=== PATIENT | female | born 1970 | race Caucasian/White ===

== ENCOUNTER 2017-06-27 19:04 | Inpatient (IN) | payer BC ==
[~2017-06-27] VITALS: Ht 160 cm; Wt 67.3 kg
[2017-06-27 19:11] VITALS: Ht 160 cm; Wt 67.3 kg
[2017-06-27 20:23] LABS: BASOPHIL % 0.3 % (0-2); PLATELET COUNT 272 x10^3mcL (130-400); RED CELL DISTRIBUTION WIDTH 13.6 % (11.5-14.5)
[2017-06-27 20:31] LABS: CALCIUM 8.4 mg/dL (8.5-10.1); CARBON DIOXIDE 26.4 mmol/L (21-32); CHLORIDE SERUM 104 mmol/L (98-107); CREATININE SERUM 0.8 mg/dL (0.6-1.0); GFR1 > 60 mL/min; GLUCOSE SERUM 112 mg/dL (74-106); POTASSIUM SERUM 3.7 mmol/L (3.5-5.1); SODIUM SERUM 138 mmol/L (136-145)
[2017-06-27 20:36] LABS: ALKALINE PHOSPHATASE 54 U/L (46-116); ALT/SGPT 18 U/L (14-59); AST/SGOT 11 U/L (15-37); BILIRUBIN TOTAL 0.31 mg/dL (0.20-1.00); TOTAL PROTEIN, SERUM 6.5 g/dL (6.4-8.2)
[2017-06-27 20:38] LABS: ALBUMIN 3.3 g/dL (3.4-5.0)
[2017-06-27 21:46] LABS: AMPHETAMINE QUAL UR NONE DETECTED (NEG <=1000)
[2017-06-27 22:59] VITALS: BP 202/111
[2017-06-27 23:17] LABS: MAGNESIUM 2.1 mg/dL (1.8-2.4); PHOSPHOROUS 4.8 mg/dL (2.5-4.9)
[2017-06-27 23:19] LABS: FREE T4 1.15 ng/dL (0.76-1.46); FREE THYROXINE INDEX 3.5 ug/dL (1.4-4.5); T4(THYROXINE) 9.1 ug/dL (4.7-13.3)
[2017-06-27 23:33] LABS: CHOLESTEROL/HDL RATIO 3.5
[2017-06-27 23:53] VITALS: BP 135/78
[2017-06-28 01:16] LABS: T3 TOTAL 1.11 ng/mL
[2017-06-28 03:59] LABS: BASOPHIL % 0.3 % (0-2); PLATELET COUNT 274 x10^3mcL (130-400); RED CELL DISTRIBUTION WIDTH 13.3 % (11.5-14.5)
[2017-06-28 04:07] LABS: CALCIUM 8.3 mg/dL (8.5-10.1); CARBON DIOXIDE 26.8 mmol/L (21-32); CHLORIDE SERUM 105 mmol/L (98-107); CREATININE SERUM 0.7 mg/dL (0.6-1.0); GFR1 > 60 mL/min; GLUCOSE SERUM 102 mg/dL (74-106); POTASSIUM SERUM 3.8 mmol/L (3.5-5.1); SODIUM SERUM 138 mmol/L (136-145)
[2017-06-28 05:19] VITALS: BP 110/69
[2017-06-28 08:27] VITALS: BP 129/78
[2017-06-28 12:21] VITALS: BP 121/77
[2017-06-28 15:23] LABS: UA SPECIFIC GRAVITY 1.025 (1.005-1.035); microscopic required? YES; urine erythrocyte 3+ (NEGATIVE)
[2017-06-28 16:36] VITALS: BP 105/68
[2017-06-28 21:12] VITALS: BP 132/85
[2017-06-29 04:45] VITALS: BP 150/94
[2017-06-29 06:25] LABS: BASOPHIL % 0.3 % (0-2); PLATELET COUNT 246 x10^3mcL (130-400); RED CELL DISTRIBUTION WIDTH 13.6 % (11.5-14.5)
[2017-06-29 06:59] LABS: CALCIUM 8.4 mg/dL (8.5-10.1); CARBON DIOXIDE 25.6 mmol/L (21-32); CHLORIDE SERUM 108 mmol/L (98-107); CREATININE SERUM 0.6 mg/dL (0.6-1.0); GFR1 > 60 mL/min; GLUCOSE SERUM 92 mg/dL (74-106); MAGNESIUM 2.2 mg/dL (1.8-2.4); PHOSPHOROUS 3.7 mg/dL (2.5-4.9); POTASSIUM SERUM 4.6 mmol/L (3.5-5.1); SODIUM SERUM 141 mmol/L (136-145)
[2017-06-29 09:43] VITALS: BP 149/91
[2017-06-29] MEDS ORDERED: PROTONIX40 MG/Pac1 PO (12:00)
[2017-06-29] MEDS ORDERED: ZES5 PO (12:00)
[2017-06-29] MEDS ORDERED: METOPROLOL TART25 M1 PO (12:00)
[2017-06-29 12:48] VITALS: BP 149/91
== END 2017-06-29 13:40 | disposition home or self-care (01) | DRG 391 ==
LOC: ED 19:04 → DU 22:28
PROVIDERS: Emergency Medicine; Student in an Organized Health Care Education/Training Program
DX: K21.9 Gastro-esophageal reflux disease without esophagitis (principal); N17.0 Acute kidney failure with tubular necrosis; Z68.1 Body mass index [BMI] 19.9 or less, adult; I10 Essential (primary) hypertension; E66.9 Obesity, unspecified; E83.51 Hypocalcemia; E78.5 Hyperlipidemia, unspecified; E02 Subclinical iodine-deficiency hypothyroidism; D72.829 Elevated white blood cell count, unspecified; I08.3 Combined rheumatic disorders of mitral, aortic and tricuspid valves
CPT/HCPCS: 83880; 84439; J0360; J1885; J7030; Q0092; Q0163

== ENCOUNTER 2017-11-18 14:10 | Emergency (ER) | payer BC, OTHER ==
[~2017-11-18] VITALS: Ht 162.6 cm; Wt 67.1 kg
[~2017-11-18 14:10] MED LIST: METOPROLOL TART25 M1 PO; PROTONIX40 MG/Pac1 PO; ZES5 PO
[2017-11-18 14:16] VITALS: BP 113/78; Ht 162.6 cm; Wt 67.1 kg
== END 2017-11-18 16:58 | disposition home or self-care (01) ==
LOC: ED 14:10
DX: S29.011A Strain of muscle and tendon of front wall of thorax, initial encounter (principal); I10 Essential (primary) hypertension; Z88.8 Allergy status to other drugs, medicaments and biological substances; V43.52XA Car driver injured in collision with other type car in traffic accident, initial encounter; Y93.I9 Activity, other involving external motion; Y92.89 Other specified places as the place of occurrence of the external cause; Y99.8 Other external cause status

== ENCOUNTER 2017-11-27 09:55 | Emergency (ER) | payer BC, OTHER ==
[~2017-11-27] VITALS: Ht 162.6 cm; Wt 68.7 kg
[2017-11-27 09:57] VITALS: Ht 162.6 cm; Wt 68.7 kg
[2017-11-27 11:46] VITALS: BP 115/70
== END 2017-11-27 11:47 | disposition home or self-care (01) ==
LOC: ED 09:55
DX: S20.219A Contusion of unspecified front wall of thorax, initial encounter (principal); I10 Essential (primary) hypertension; Z88.1 Allergy status to other antibiotic agents; V89.2XXA Person injured in unspecified motor-vehicle accident, traffic, initial encounter; Y93.73 Activity, racquet and hand sports; Y92.488 Other paved roadways as the place of occurrence of the external cause; Y99.8 Other external cause status

== ENCOUNTER 2020-04-24 12:06 | Emergency (ER) | payer BC ==
[~2020-04-24] VITALS: Ht 149.9 cm; Wt 62.6 kg
[2020-04-24 12:32] VITALS: Ht 149.9 cm; Wt 62.6 kg
[2020-04-24 16:46] VITALS: BP 141/93
== END 2020-04-24 16:46 | disposition home or self-care (01) ==
LOC: ED 12:06
DX: S61.210A Laceration without foreign body of right index finger without damage to nail, initial encounter (principal); I10 Essential (primary) hypertension; E78.00 Pure hypercholesterolemia, unspecified; Z88.1 Allergy status to other antibiotic agents; Z98.890 Other specified postprocedural states; W26.8XXA Contact with other sharp object(s), not elsewhere classified, initial encounter; Y93.89 Activity, other specified; Y92.89 Other specified places as the place of occurrence of the external cause; Y99.8 Other external cause status
CPT/HCPCS: 90715; A4570; J2001